=== PATIENT | male | born 1960 | race Caucasian/White ===

== ENCOUNTER 2016-09-14 06:13 | Day surgery (SDC) | payer OTHER ==
[~2016-09-14] VITALS: Ht 177.8 cm; Wt 92.5 kg
--- NOTE | ~2016-09-14 | O ---
[facility] [place] [address] OPERATIVE REPORT Name: NATALY CANNON Room #: [facility] MCarissa.#: [id number] Admission: 09/14/16 Attend Phys: Channing Figueredo MD Discharge: 09/14/16 Date of : 60 Report #: [id number] THIS REPORT FOR: //name// CC: Nadia Figueredo DATE OF SERVICE: 09/14/2016 PREOPERATIVE DIAGNOSIS: Right knee medial and lateral meniscus tear and chondromalacia patella. 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 PROCEDURE: Right knee arthroscopy, partial medial meniscectomy, chondroplasty, medial femoral condyle and partial lateral meniscectomy and chondroplasty of patella. SURGEON: Channing Figueredo MD. ANESTHESIA: General. INDICATIONS: See hospital H and P. DESCRIPTION OF PROCEDURE: After adequate general anesthesia had been obtained, the patient's right lower extremity was prepped and draped in the usual meticulous sterile fashion. Limb was exsanguinated with gravity, tourniquet inflated to 350 torr. A superomedial portal was established by first infiltrating with 0.5% Naropin, then making a stab incision with 11 blade. Inflow cannula placed. The knee was insufflated with fluid. Anterolateral and anteromedial portals were established utilizing the same technique. Complete diagnostic arthroscopy was performed. Medial compartment demonstrated evidence of a diffuse chondral calcinosis, both of the articular surface as well as the meniscus. He did have a flap tear in the central portion of the meniscus, which was debrided with baskets and janelle to a stable rim. He also had some delamination grade 2 chondromalacia involving the central portion of weightbearing dome, which was smoothed with a shaver. Lateral compartment demonstrated likewise a lateral meniscus radial tear central body. This was smoothed with the baskets and a shaver. The chondral surfaces were reasonably well preserved. There was some evidence of chondral calcinosis in this compartment as well. Patellofemoral compartment demonstrated the most advanced chondral wear. He had grade 3 and a small area of grade 4 change superomedial patella. The [address] [address] OPERATIVE REPORT Name: NATALY CANNON Room #: [facility] M.R.#: [id number] Admission: 09/14/16 Attend Phys: Channing Figueredo MD Discharge: 09/14/16 Date of : 60 Report #: [id number] chondral fragments were smoothed with a shaver and the trochlea additionally demonstrated a grade 2 and some areas of grade 3 centrally which was smoothed with a shaver. At this time, the knee was irrigated copiously. A 0.5% Naropin was infiltrated into the knee. Portals were closed with 4-0 nylon. Sterile compressive was applied. Tourniquet deflated. By: [id number] Channing Figueredo MD /keri
[~2016-09-14 06:13] MED LIST: GLUCOSAMINE CH1 EAC7 PO; MOBIC7.5 MG PO; MULTIVITAMINS PO; TRAMADOL 50 MG50 MG PO
[2016-09-14 12:15] VITALS: BP 121/75
[2016-09-14 16:35] VITALS: BP 121/75
== END 2016-09-14 10:40 | disposition home or self-care (01) ==
LOC: OR 06:13 → TBA 06:13 → OR 10:40
DX: M23.203 Derangement of unspecified medial meniscus due to old tear or injury, right knee (principal); M23.200 Derangement of unspecified lateral meniscus due to old tear or injury, right knee; M22.41 Chondromalacia patellae, right knee; J45.909 Unspecified asthma, uncomplicated; Z98.890 Other specified postprocedural states
CPT/HCPCS: 50010; 50101; 50405; 50612; 51038; 54170; 56526; 62110; 62900; 64037; 70005